=== PATIENT | female | born 1985 | race Caucasian/White ===

== ENCOUNTER 2020-03-31 19:13 | Emergency (ER) | payer BC ==
--- NOTE | 2020-03-31 19:49 | EDM.PDOC ---
ED HPI GENERAL MEDICAL PROBLEM - General Chief Complaint: Lower Extremity Injury/Pain Stated Complaint: LT KNEE INJURY Time Seen by Provider: 03/31/20 19:18 Source of Information: Reports: Patient History Limitations: Reports: No Limitations - History of Present Illness INITIAL COMMENTS - FREE TEXT/NARRATIVE: This is a 34-year-old female. She was working on a 1952 truck and having to kneel and bend down a lot today and she was carrying a parked and she knelt down beside the truck and when she did she had left knee pain and then she found she could not straighten her left knee. She says her knee is locked up before but she is always been able to straighten it and it seems to do okay after that but tonight she was not able to straighten it effectively without increased pain. She comes to the ER for evaluation. Initially the pain seemed to be more on the medial side and the posterior knee. Now the sides of the knee do not seem to bother her is just the posterior knee and when she tries to straighten the leg she gets pulling in her quadriceps muscles and pain in the posterior knee. She denies any injury. She has no history of injury to that left knee. She denies any other acute symptoms. Left Knee Pain Score (Numeric/FACES): 7 - Related Data Allergies Allergy/AdvReac Type Severity Reaction Status Date / Time Penicillins Allergy Hives Verified 03/31/20 19:23 Home Meds: Home Meds Calcium Carb,Gluc/Mag Ox,Gluc [Calcium Magnesium Caplet] 1 tab PO DAILY 03/31/20 [History] Loratadine [Claritin] 10 mg PO DAILY 03/31/20 [History] Past Medical History - Past Surgical History HEENT Surgical History: Reports: Oral Surgery Social & Family History - Tobacco Use Used Tobacco, but Quit: Yes Month/Year Tobacco Last Used: 3 years ago - Caffeine Use Caffeine Use: Reports: None - Recreational Drug Use Recreational Drug Use: No Review of Systems - Review of Systems Review Of Systems: See Below Constitutional: Reports: No Symptoms Eyes: Reports: No Symptoms Ears: Reports: No Symptoms Nose: Reports: No Symptoms Mouth/Throat: Reports: No Symptoms Respiratory: Reports: No Symptoms Cardiovascular: Reports: No Symptoms GI/Abdominal: Reports: No Symptoms Genitourinary: Reports: No Symptoms Musculoskeletal: Reports: Joint Pain Skin: Reports: No Symptoms Neurological: Reports: No Symptoms Psychiatric: Reports: No Symptoms ED EXAM, GENERAL - Physical Exam Exam: See Below Exam Limited By: No Limitations General Appearance: Alert, WD/WN, No Apparent Distress Eye Exam: Bilateral Eye: Normal Inspection Ears: Normal External Exam Nose: Normal Inspection Throat/Mouth: Normal Lips, Normal Voice, No Airway Compromise Head: Normocephalic Neck: Supple Respiratory/Chest: No Respiratory Distress Back Exam: Full Range of Motion Extremities: Other (The left knee does not show any swelling. She has a negative anterior and posterior drawer sign. Her collateral ligaments are non- tender on stressing and there is no laxity. Palpation of the joint line medial and lateral is not tender. Palpation of the posterior knee does not reveal any significant swelling though it is tender. When I attempt to straighten her leg she is able to get it almost completely extended lacking maybe 10 degrees but then she complains of pulling in her quadricep muscles. This prefer to have a bent at about 30 degrees which makes it feel the most comfortable. No other acute findings in her lower extremities.) Neurological: Alert, Oriented Psychiatric: Normal Affect, Normal Mood Skin Exam: Warm, Dry Course - Vital Signs Last Recorded V/S: Last Vital Signs Temp 98.2 F 03/31/20 19:20 Pulse 73 03/31/20 19:20 Resp 16 03/31/20 19:20 BP 151/82 H 03/31/20 19:20 Pulse Ox 99 03/31/20 19:20 - Orders/Labs/Meds Orders: Active Orders 24 hr Category Date Time Status Knee Min 4V Lt [CR] Stat Exams 03/31/20 19:41 Taken - Radiology Interpretation Free Text/Narrative:: X-ray of the right knee does not show any acute bone abnormalities. - Re-Assessments/Exams Free Text/Narrative Re-Assessment/Exam: 03/31/20 20:52 To the patient regarding her x-ray results. She says her knee is feeling a little bit better now and she is able to straighten it better. She did walk to the bathroom and she says is feeling much more comfortable as she bears weight on it. Departure - Departure Time of Disposition: 20:53 Disposition: Home, Self-Care 01 Condition: Good Clinical Impression: Locking of left knee Meniscus, medial, derangement Qualifiers: Laterality: left Qualified Code(s): M23.304 - Other meniscus derangements, unspecified medial meniscus, left knee Strain of left knee Qualifiers: Encounter type: initial encounter Qualified Code(s): S86.912A - Strain of unspecified muscle(s) and tendon(s) at lower leg level, left leg, initial encounter - Discharge Information *PRESCRIPTION DRUG MONITORING PROGRAM REVIEWED*: Not Applicable *COPY OF PRESCRIPTION DRUG MONITORING REPORT IN PATIENT TAYLA: Not Applicable Instructions: Knee Sprain, Adult, [id number], Meniscus Tear, How to Use Cold Therapy Referrals: Solitario Mendosa MD [Physician] - Forms: ED Department Discharge Additional Instructions: Continue to use ice to the left knee for comfort, take some ibuprofen or Advil as needed for the soreness, follow-up with Dr. Mendosa by calling his office on Thursday to get an appointment to be reevaluated and possible MRI of the left knee, avoid any extreme flexion of that left knee since that will tend to make it lock up if is going to lock up, return to the ER if needed Sepsis Event Note (ED) - Evaluation Sepsis Screening Result: No Definite Risk - Focused Exam Vital Signs: Vital Signs Temp Pulse Resp BP Pulse Ox 03/31/20 19:20 98.2 F 73 16 151/82 H 99 - My Orders Last 24 Hours: My Active Orders 03/31/20 19:41 Knee Min 4V Lt [CR] Stat - Assessment/Plan Last 24 Hours: My Active Orders 03/31/20 19:41 Knee Min 4V Lt [CR] Stat
--- NOTE | 2020-04-01 11:26 | CR ---
Left knee: 4 views of the left knee were obtained. Comparison: No previous knee exam. Medial and lateral joint compartments are maintained in height. No joint effusion is seen. No acute fracture or other abnormality is appreciated. Impression: 1. Nothing acute is seen on 4 view left knee exam. Diagnostic code #1 Study was dictated in MDT
== END 2020-03-31 21:13 | disposition home or self-care (01) ==
LOC: JD.ED 19:13
DX: S86.912A Strain of unspecified muscle(s) and tendon(s) at lower leg level, left leg, initial encounter (principal); M23.304 Other meniscus derangements, unspecified medial meniscus, left knee; Z88.0 Allergy status to penicillin; Z79.899 Other long term (current) drug therapy; X50.1XXA Overexertion from prolonged static or awkward postures, initial encounter
CPT/HCPCS: 73564-26-LT; 73564-LT; 99282; 99283-25